=== PATIENT | male | born 1985 ===

== ENCOUNTER 2018-04-21 01:39 | Emergency (ER) | payer SELFPAY ==
--- NOTE | 2018-04-21 02:31 | C.PDOC ---
History Of Present Illness 32 y/o male presents to the ED for evaluation of cough for the past 4 weeks. Reports noticing chest pain with cough today. He denies any history of asthma or COPD. Denies smoking. Patient otherwise denies fever, chills, headache, dizziness, neck pain, SOB, dyspnea, wheezing, palpitation, abd. pain, N/v/D, denies leg swelling/pain, weakness. Ambulate to Ed for evaluation, not in any apparent distress. Time Seen by Provider: 04/21/18 01:43 Chief Complaint (Nursing): Cough, Cold, Congestion History Per: Patient History/Exam Limitations: no limitations Onset/Duration Of Symptoms: Days Current Symptoms Are (Timing): Still Present Associated Symptoms: Cough Past Medical History Reviewed: Historical Data, Nursing Documentation, Vital Signs - Medical History PMH: No Chronic Diseases Surgical History: No Surg Hx Family History: States: No Known Family Hx - Social History Hx Tobacco Use: No Hx Alcohol Use: No Hx Substance Use: No - Immunization History Hx Tetanus Toxoid Vaccination: No Hx Influenza Vaccination: No Hx Pneumococcal Vaccination: No Review Of Systems Constitutional: Negative for: Fever, Chills Cardiovascular: Positive for: Chest Pain (with coughing). Negative for: Palpitations Respiratory: Positive for: Cough. Negative for: Shortness of Breath, Wheezing Gastrointestinal: Negative for: Nausea, Vomiting, Diarrhea Skin: Negative for: Rash Neurological: Negative for: Headache, Dizziness Physical Exam - Physical Exam Appears: Well, Non-toxic, No Acute Distress Skin: Warm, Dry Head: Normacephalic Eye(s): bilateral: PERRL Ear(s): Bilateral: Normal Nose: No Flaring, No Discharge Oral Mucosa: Moist Throat: No Erythema, No Drooling Neck: Trachea Midline, Supple Chest: Symmetrical, No Deformity, No Tenderness Cardiovascular: Rhythm Regular, No Murmur, No JVD Respiratory: No Decreased Breath Sounds, No Accessory Muscle Use, No Rales, No Rhonchi, No Stridor, No Wheezing Gastrointestinal/Abdominal: Soft, No Tenderness, No Distention, No Guarding, No Rebound Back: No CVA Tenderness Extremity: Bilateral: Atraumatic, Normal Color And Temperature, Normal ROM Neurological/Psych: Oriented x3, Normal Speech ED Course And Treatment ECG: Interpreted By Me, Viewed By Me ECG Rhythm: Sinus Rhythm ECG Interpretation: Normal Interpretation Of ECG: SR@60/min, NAD, no acute T wave or ST-T changes Rate From EC (bpm) O2 Sat by Pulse Oximetry: 99 Pulse Ox Interpretation: Normal - Radiology CXR: Interpreted by Me, Viewed By Me CXR Interpretation: Yes: No Acute Disease Progress Note: EKG and Chest x-ray ordered and reviewed. On re-eval, pt is awake, alert, comforable, not in resp. distress. Non-toxic. PulseOx 99% RA. ENT: no acute findings. neck: SUpple, (-) JVD, (-) carotid bruits B/L. Lungs: CTA B/L, BS equal B/L. CVS: (+)S1S2, reg. Abd: benign, (-) guarding, (-) rebound. neuorlogicaly intact. CXR, EKG -normal study. Pt has clinical findings c/w acute bronchitis. Pt advised. ref. to f/u with PMD in 1-2 days for re-eavl. return if any worsening or new changes. Disposition Counseled Patient/Family Regarding: Studies Performed, Diagnosis, Need For Followup, Rx Given - Disposition Referrals: [facility] [Outside] Disposition: HOME/ ROUTINE Disposition Time: 03:33 Condition: STABLE Additional Instructions: Encourage fluids Take medication as prescribed Follow up with PMD in 2-3 days for re-evaluation. return to ED if any worsening or new changes. Prescriptions: Albuterol HFA [Ventolin HFA 90 mcg/actuation (8 g)] 1 puff IH Q6 #1 inhaler Azithromycin [Zithromax] 250 mg PO DAILY #4 tab Prednisone [Deltasone] 40 mg PO DAILY #6 tablet Promethazine/Codeine [Phenergan/Codeine Oral Syrup] 10 ml PO BID #90 ml Instructions: Acute Bronchitis Forms: [employer] (Danish) Print Language: BURKINAN - Clinical Impression Clinical Impression: Bronchitis - PA / [employer] / Resident Statement MD/DO has reviewed & agrees with the documentation as recorded. - Scribe Statement The provider has reviewed the documentation as recorded by the Scribe (Lauren Arce) All medical record entries made by the Scribe were at my direction and personally dictated by me. I have reviewed the chart and agree that the record accurately reflects my personal performance of the history, physical exam, medical decision making, and the department course for this patient. I have also personally directed, reviewed, and agree with the discharge instructions and disposition.
[2018-04-21] MEDS ORDERED: Albuterol 0.083% Inhal Sol (2.5 mg/3 mL) UD IH STA (02:41)
[2018-04-21] MEDS ORDERED: Albuterol 0.083% Inhal Sol (2.5 mg/3 mL) UD ONE (02:58)
[2018-04-21 04:13] VITALS: BP 101/62; PULSE 65; RESP 14; TEMP 97.8; O2SAT 100
--- NOTE | 2018-04-21 09:22 | RAD ---
Date of service: 04/21/2018 HISTORY: Cough COMPARISON: No prior. TECHNIQUE: Chest PA and lateral FINDINGS: LUNGS: No active pulmonary disease. PLEURA: No significant pleural effusion identified. No pneumothorax apparent. CARDIOVASCULAR: No aortic atherosclerotic calcification present. Normal cardiac size. No pulmonary vascular congestion. OSSEOUS STRUCTURES: No significant abnormalities. VISUALIZED UPPER ABDOMEN: Normal. OTHER FINDINGS: None. IMPRESSION: No active disease.
--- NOTE | 2018-04-22 20:04 | CARD ---
APPROVED REPORT Date of service: 04/21/2018 EKG Measurement Heart [id number] <Conclusion> Normal sinus rhythm Normal ECG
== END 2018-04-21 04:14 | disposition home or self-care (01) ==
LOC: C.ER 01:39
DX: J40 Bronchitis, not specified as acute or chronic (principal)